=== PATIENT | male | born 1995 | race Caucasian/White ===

== ENCOUNTER 2016-07-16 20:11 | Emergency (ER) | payer OTHER ==
[~2016-07-16] VITALS: Ht 172.7 cm; Wt 86.0 kg
[2016-07-16 20:24] VITALS: Ht 172.7 cm; Wt 86.0 kg
[2016-07-16] MEDS ORDERED: METHYLPREDNISOLONE 125 MG INJ IV STA (20:32)
[2016-07-16] MEDS ORDERED: ALBUTEROL 0.5% (NEB) 2.5 MG/0.5 ML AMP INH STA (20:32)
[2016-07-16] MEDS ORDERED: IPRATROPIUM (NEB) 0.5 MG/2.5 ML AMP NEB STA (20:32)
[2016-07-16 20:51] LABS: BASOPHILS % 0.3 % (0.0-2.0); EOSINOPHILS # 1.6 10^3/ul (0.0-0.5); EOSINOPHILS % 11.9 % (0.0-7.0); HEMOGLOBIN 13.7 g/dl (14.0-18.0); LYMPHOCYTES # 2.3 10^3/ul (0.8-2.9); LYMPHOCYTES % 17.7 % (15.0-51.0); MEAN CORPUSCULAR HEMOGLOBIN 27.2 pg (29.0-33.0); MEAN CORPUSCULAR HGB CONC 32.7 g/dl (32.0-37.0); MEAN CORPUSCULAR VOLUME 83.3 fl (82.0-101.0); MEAN PLATELET VOLUME 8.7 fl (7.4-10.4); MONOCYTE # 1.4 10^3/ul (0.3-0.9); MONOCYTES % 10.7 % (0.0-11.0); NEUTROPHIL # 7.9 10^3/ul (1.6-7.5); NEUTROPHILS % 59.4 % (39.0-77.0); PLATELET COUNT 266 10^3/UL (140-440); RED BLOOD COUNT 5.04 10^6/ul (4.70-6.10); RED CELL DISTRIBUTION WIDTH 15.3 % (11.5-14.5); UNCORRECTED WBC 13.3 10^3/ul (4.8-10.8); WHITE BLOOD COUNT 13.3 10^3/ul (4.8-10.8)
[2016-07-16 20:53] LABS: CONDITION 1; LH ANALYZER COMMENTS 1
[2016-07-16 20:58] LABS: POTASSIUM 3.5 mmol/L (3.5-5.1)
[2016-07-16 21:01] LABS: CREATININE 0.78 mg/dl (0.61-1.24)
--- NOTE | 2016-07-16 21:08 | RADRPT ---
PROCEDURE: XR Chest. CLINICAL INDICATION: Asthma. TECHNIQUE: Portable AP semi erect view of the chest was obtained. COMPARISON: None. FINDINGS: The cardiomediastinal silhouette is within normal limits. The lungs are clear but hyperinflated, th e diaphragm flattened. There is no evidence for pleural effusion, pneumothorax or pulmonary vascula r congestion. The osseous structures are intact with no evidence for acute abnormality. RPTAT:HJJR IMPRESSION: Flattening of the diaphragm and hyperinflation of the lungs correlates with the provided history of asthma without evidence of pulmonary infiltrate. Physician Latosha Date Time Electronically viewed and signed by Physician Latosha on 07/16/2016 21:08 JR/
--- NOTE | 2016-07-16 21:11 | RADRPT ---
PROCEDURE: CT brain without contrast CLINICAL INDICATION: Head trauma with 1 week ago with persistent headaches TECHNIQUE: A CT of the brain was performed utilizing axial sections from the skull base through th e vertex without contrast. Sagittal and coronal images were also reformatted. The exam CTDIvol = 44. 40 mGy and DLP = 720.23 mGy-cm. COMPARISON: None available FINDINGS: No acute intracranial hemorrhage is identified. There is no mass effect or midline shift. No extra -axial fluid collection is seen. The ventricles and sulci are within normal limits for size and con figuration. The density of the brain is within normal limits. Cha-white differentiation is preser jean claude. The osseous structures are unremarkable. Mild mucosal thickening of the ethmoid and sphenoid sinuse s is present. The frontal sinuses and mastoid air cells are clear RPTAT:HJJR IMPRESSION: 1.Unremarkable noncontrast CT of the brain. 2. Mild mucosal thickening of the ethmoid and sphenoid sinuses. Physician Latosha Date Time Electronically viewed and signed by Physician Latosha on 07/16/2016 21:10 /
--- NOTE | 2016-07-16 21:23 | ERD ---
ER Documentation Chief Complaint Date/Time DATE: 07/16/16 TIME: 21:19 Chief Complaint SOB w/ wheezing, h/o asthma, states was recently intubated. in custody HPI 21-year-old male with a history of asthma under police custody comes to the emergency room with shortness breath and wheezing. Patient states that he uses a nebulizer, but has not used it since he was in custody today. He states that he had fallen a week ago and was seen at [facility], patient reports that he was intubated, this was all done in an outside facility. He reports that they did take imaging of his brain was normal. He has a history of heroin abuse per police officers. Has no chest pain. ROS All systems reviewed and are negative except as per history of present illness. Medications Home Meds Active Scripts Albuterol Sulfate* (Albuterol Sulfate* Neb) 0.083%-3 Ml Neb, 2.5 MG NEB Q4 Y for SHORTNESS OF BREATH, #30 EA Prov:ROSEMARY GUTIERREZ PA-C 07/16/16 Beclomethasone Dip (Qvar 40) 1 Puff Inha, 1 PUFF INH BID, #1 INHALER Prov:ROSEMARY GUTIERREZ PA-C 07/16/16 Albuterol Sulfate* (Proair HFA*) 8.5 Gm Hfa.aer.ad, 2 PUFF INH Q4, #1 INHALER Prov:ROSEMARY GUTIERREZ PA-C 07/16/16 Prednisone* (Prednisone*) 20 Mg Tab, 40 MG PO DAILY for 4 Days, TAB Prov:ROSEMARY GUTIERREZ PA-C 07/16/16 Allergies Allergies: Coded Allergies: No Known Allergy (Unverified , 07/16/16) PMhx/Soc History of Surgery: No Anesthesia Reaction: No Hx Neurological Disorder: No Hx Respiratory Disorders: Yes (ASTHMA) Hx Cardiac Disorders: No Hx Psychiatric Problems: No Hx Miscellaneous Medical Probl: No Hx Alcohol Use: Yes Hx Substance Use: Yes Hx Tobacco Use: Yes Smoking Status: Current every day smoker Physical Exam Vitals Vital Signs Date Time Temp Pulse Resp B/P Pulse Ox O2 Delivery O2 Flow Rate FiO2 07/16/16 22:27 90 16 124/70 94 Room Air 07/16/16 20:46 Nasal Cannula 07/16/16 20:42 114 14 100 Aerosol 6.0 07/16/16 20:24 98.3 73 18 100/55 96 Physical Exam \General: Well-developed, well-nourished. The patient appears in no acute distress. HEENT: Head is normocephalic, atraumatic. No scleral icterus. Extraocular movements intact, ecchymosis on the right lower eyelid pupils are equal, round, and reactive. Oral mucous membranes are moist. No pharyngeal erythema. Neck: Supple. Nontender. Lungs: Tachypnea, there is wheezing bilaterally, no rales or rhonchi. Heart: Regular rate and rhythm. S1 and S2 are normal. No murmurs, gallops, or rubs. Abdomen: Soft, nontender, nondistended. Bowel sounds are normoactive. Extremities: No clubbing or cyanosis. Normal pulses. Moving extremities x 4. No weakness. Neurologic: Alert and oriented 3. No focal deficits. Skin: Normal turgor. No rash or lesions. Result Diagram: 07/16/16204407/16/162044 Results 24 hrs Laboratory Tests Test 07/16/16 20:45 07/16/16 21:10 Anion Gap 16 Basophils # 0.010^3/ul Basophils % 0.3% Blood Morphology Comment Blood Urea Nitrogen 13mg/dl Calcium Level 9.0mg/dl Carbon Dioxide Level 28mmol/L Chloride Level 101mmol/L Creatinine 0.78mg/dl Eosinophils # 1.610^3/ul Eosinophils % 11.9% Glucose Level 97mg/dl Hematocrit 42.0% Hemoglobin 13.7g/dl Lymphocytes # 2.310^3/ul Lymphocytes % 17.7% Mean Corpuscular Hemoglobin 27.2pg Mean Corpuscular Hemoglobin Concent 32.7g/dl Mean Corpuscular Volume 83.3fl Mean Platelet Volume 8.7fl Monocytes # 1.410^3/ul Monocytes % 10.7% Neutrophils # 7.910^3/ul Neutrophils % 59.4% Nucleated Red Blood Cells # 0.010^3/ul Nucleated Red Blood Cells % 0.0/100WBC Platelet Count 13331^3/UL Potassium Level 3.5mmol/L Red Blood Count 5.0410^6/ul Red Cell Distribution Width 15.3% Sodium Level 141mmol/L White Blood Count 13.310^3/ul Urine Amphetamines Screen POSITIVE Urine Barbiturates Negative Urine Benzodiazepines Screen Positive Urine Cannabinoids Positive Urine Cocaine Screen Negative Urine Opiates Screen Positive Current Medications Medications (Trade) Dose Ordered Sig/Nav Route PRN Reason Start Time Stop Time Status Last Admin Dose Admin Ipratropium [place] (Atrovent 0.02% (Neb)) 1 mg ONCE STAT NEB 07/16/16 20:32 07/16/16 20:34 DC 07/16/16 20:42 Albuterol (Proventil 0.5% (Neb)) 10 mg ONCE STAT INH 07/16/16 20:32 07/16/16 20:34 DC 07/16/16 20:42 Methylprednisolone Sodium Succinate (Solu-Medrol) 125 mg ONCE STAT IV 07/16/16 20:32 07/16/16 20:34 DC 07/16/16 20:38 12-lead EKG(interpreted by supervising physician): reviewed by Dr Llamas Rate/Rhythm: [Normal Sinus Rhythm], rate of 121 QRS, ST, T-waves: [No changes consistent w/ acute ischemia], no intervals, no dysrhythmias, no ectopy Impression: [No evidence of ischemia or arrhythmia] PROCEDURE: CT brain without contrast CLINICAL INDICATION: Head trauma with 1 week ago with persistent headaches TECHNIQUE: A CT of the brain was performed utilizing axial sections from the skull base through the vertex without contrast. Sagittal and coronal images were also reformatted. The exam CTDIvol = 44.40 mGy and DLP = 720.23 mGy-cm. COMPARISON: None available FINDINGS: No acute intracranial hemorrhage is identified. There is no mass effect or midline shift. No extra-axial fluid collection is seen. The ventricles and sulci are within normal limits for size and configuration. The density of the brain is within normal limits. Cha-white differentiation is preserved. The osseous structures are unremarkable. Mild mucosal thickening of the ethmoid and sphenoid sinuses is present. The frontal sinuses and mastoid air cells are clear RPTAT:HJJR IMPRESSION: 1.Unremarkable noncontrast CT of the brain. 2. Mild mucosal thickening of the ethmoid and sphenoid sinuses. Quentin Rupert, Physician Date Time Electronically viewed and signed by Physician Latosha on 07/16/2016 21:10 PROCEDURE: XR Chest. CLINICAL INDICATION: Asthma. TECHNIQUE: Portable AP semi erect view of the chest was obtained. COMPARISON: None. FINDINGS: The cardiomediastinal silhouette is within normal limits. The lungs are clear but hyperinflated, the diaphragm flattened. There is no evidence for pleural effusion, pneumothorax or pulmonary vascular congestion. The osseous structures are intact with no evidence for acute abnormality. RPTAT:HJJR IMPRESSION: Flattening of the diaphragm and hyperinflation of the lungs correlates with the provided history of asthma without evidence of pulmonary infiltrate. Physician Latosha Date Time Electronically viewed and signed by Physician Latosha on 07/16/2016 21:08 JR/ Procedures/MDM ED COURSE: Patient was seen and evaluated, placed in a gurney. Patient was given a breathing treatment Albuterol 10mg continuous, Atrovent 1mg, breathing treatment. He had a IV line established, Solu medrol 125 IV was given. MDM: 21 year old male comes to emergency room shortness of breath, patient presents with an asthma exacerbation was given Solu-Medrol as well as breathing treatment. His vitals are stable, pulse oximetry was 99% on room air with improved breath sounds. Patient will be okay to book to released to police custody. Differential diagnosis includes status asthmaticus, hypoxia, acute coronary syndrome, pulmonary embolus, dissection, pneumonia and among others. Departure Diagnosis: Primary Impression: Asthma exacerbation Additional Impression: Polysubstance dependence including opioid type drug, episodic abuse Condition: ROSEMARY Campoverde PA-C Jul 16, 2016 21:23
[2016-07-16 22:01] LABS: BARBITURATES Negative (NEGATIVE); BENZODIAZEPINES Positive (NEGATIVE); CANNABINOIDS Positive (NEGATIVE); COCAINE Negative (NEGATIVE); OPIATES Positive (NEGATIVE)
[2016-07-16] MEDS ORDERED: ALBU8.5H3 INH (22:21)
[2016-07-16] MEDS ORDERED: ALBU2.5V3 NEB (22:21)
[2016-07-16] MEDS ORDERED: PRED20TA PO (22:21)
[2016-07-16] MEDS ORDERED: QVAR40 INH (22:21)
[2016-07-16 22:27] VITALS: BP 124/70; PULSE 90; RESP 16
== END 2016-07-16 22:27 | disposition home or self-care (01) ==
LOC: FTE 20:11
DX: J45.901 Unspecified asthma with (acute) exacerbation (principal); F17.210 Nicotine dependence, cigarettes, uncomplicated; F11.10 Opioid abuse, uncomplicated; R51 Headache
CPT/HCPCS: 70450; 71010; 80048; 80307; 85025; 94644; J2930; 93005; 96374; P9612